=== PATIENT | male | born 1945 | race Caucasian/White ===

== ENCOUNTER 2025-07-10 17:32 | Emergency (ER) | payer MEDICARE ==
[2025-07-10 19:44] LABS: Bacteria/HPF Rare-Few HPF (None Seen); CAUTI Indications for Culture Alt mental st,lethar; Glucose, Urine (Dipstick) Negative (Negative); Leukocyte Negative (Negative); Protein, Urine (Dipstick) Negative (Neg-Trace); RBC/HPF 0-3 HPF (0-3); Specific Gravity, Urine 1.020 (1.005-1.030); WBC/HPF None Seen HPF (0-3)
[2025-07-10 19:46] LABS: Urine Culture Reflex No No
[2025-07-10 21:41] LABS: #Basophils 0.1 thou/uL (0.0-0.2); #Eosinophils 0.1 thou/uL (0.0-0.7); #Lymphocytes 3.0 thou/uL (1.20-3.40); #Monocytes 0.6 thou/uL (0.11-0.59); #Neutrophils 4.9 thou/uL (1.40-6.50); %Basophils 1.1 % (0.0-1.0); %Eosinophils 0.9 % (0.0-10.0); %Lymphocytes 34.7 % (21.0-51.0); %Monocytes 6.6 % (0.0-10.0); %Neutrophils 56.7 % (42.0-75.0); Hematocrit 34.1 % (42.0-52.0); Hemoglobin 11.2 g/dL (14.0-18.0); Mean Corpuscular Hemoglobin 29.4 pg (27.0-31.0); Mean Corpuscular Volume 89.4 fl (78.0-98.0); Platelet Count 210 10x3/uL (130-400); Red Blood Cell (RBC) Count 3.82 mill/uL (4.70-6.10); White Blood Cell (WBC) Count 8.6 10x3/uL (4.8-10.8)
[2025-07-10 21:58] LABS: ALT (SGPT) 13 U/L (Less than 45); AST (SGOT) 18 U/L (11-34); Albumin 3.8 g/dL (3.1-4.5); Alkaline Phosphatase 62 U/L (40-110); Anion Gap 15 mmol/L (10-20); BUN (Urea Nitrogen) 40 mg/dL (8.4-25.7); Bilirubin, Total 0.5 mg/dL (0.3-1.2); CK (CPK) 158 U/L (30-200); Calc. Creatinine Clearance 0 mL/min (70-130); Calcium 9.7 mg/dL (7.8-10.44); Carbon Dioxide 18 mmol/L (23-31); Chloride 113 mmol/L (98-107); Globulin 3.2 g/dL (2.4-3.5); Glucose 98 mg/dL (83-110); Potassium 3.8 mmol/L (3.5-5.1); Sodium 142 mmol/L (136-145)
== END 2025-07-11 13:15 | disposition home or self-care (01) ==
LOC: MADERS 17:32
DX: F03.90 Unspecified dementia, unspecified severity, without behavioral disturbance, psychotic disturbance, mood disturbance, and anxiety (principal); G31.9 Degenerative disease of nervous system, unspecified; R79.89 Other specified abnormal findings of blood chemistry; I67.89 Other cerebrovascular disease; I10 Essential (primary) hypertension; D64.9 Anemia, unspecified; Z79.899 Other long term (current) drug therapy
CPT/HCPCS: 70450; 80053; 81001; 82550; 85025; 93005; 94760; 96360; J7030